=== PATIENT | female | born 1995 | race Caucasian/White ===

== ENCOUNTER 2024-04-08 21:12 | Emergency (ER) | payer OTHER ==
[~2024-04-08] VITALS: Ht 157.5 cm; Wt 60.0 kg
[2024-04-08 21:18] VITALS: O2SAT 100
[2024-04-09 00:04] LABS: BASOPHILS % 0.4 % (0.0-2.0); HEMATOCRIT. 38.8 % (36.0-48.0); HEMOGLOBIN. 12.9 g/dL (12.0-16.0); LYMPHOCYTES % 23.4 % (20.0-50.0); MEAN CORPUSCULAR HEMOGLOBIN 30.4 pg (28.0-32.0); MEAN CORPUSCULAR HGB CONC 33.2 g/dL (31.0-37.0); MEAN CORPUSCULAR VOLUME 91.6 fL (81.0-99.0); MONOCYTES % 7.2 % (2.0-8.0); PLATELET 327 x1000/uL (130-400); RED BLOOD CELL COUNT 4.23 mill/uL (4.2-5.4); RED CELL DISTRIBUTION WIDTH 12.6 % (11.6-14.6); WHITE BLOOD COUNT 8.6 x1000/uL (4.5-11.0)
[2024-04-09 00:09] LABS: CHLORIDE 109 mEq/L (98-107); SODIUM 142 mEq/L (136-145)
[2024-04-09 00:10] LABS: CARBON DIOXIDE 23 mEq/L (21-32)
[2024-04-09 00:11] LABS: CALCIUM 9.4 mg/dL (8.7-10.4)
[2024-04-09 00:16] LABS: CREATININE 0.9 mg/dL (0.6-1.0); GLUCOSE 116 mg/dL (70-105); UREA NITROGEN BLOOD 12 mg/dL (9-23)
[2024-04-09] MEDS ORDERED: HYDROCODONE/ACETAMINOPHEN 5/325MG TABLET PO ONE (00:45)
[2024-04-09] MEDS ORDERED: TOPUD PO (08:29)
[2024-04-09] MEDS: HYDROCODONE/ACETAMINOPHEN 5/325MG TABLET PO NR (08:41)
[2024-04-09 08:42] VITALS: BP 138/85; PULSE 82; RESP 16; TEMP 36.94740; O2SAT 100
== END 2024-04-09 08:42 | disposition home or self-care (01) ==
LOC: ER 21:12
DX: S02.2XXA Fracture of nasal bones, initial encounter for closed fracture (principal); Z88.8 Allergy status to other drugs, medicaments and biological substances; Y04.0XXA Assault by unarmed brawl or fight, initial encounter; Y93.89 Activity, other specified; Y92.89 Other specified places as the place of occurrence of the external cause; Y99.8 Other external cause status
CPT/HCPCS: 36415; 70486; 71046; 80048; 85025; 99284

== ENCOUNTER 2024-08-28 12:58 | Emergency (ER) | payer MEDICAID ==
[~2024-08-28] VITALS: Ht 165.1 cm; Wt 60.0 kg
[~2024-08-28 12:58] MED LIST: TOPUD PO
[2024-08-28 12:59] VITALS: O2SAT 99
[2024-08-28] MEDS: LIDOCAINE HCL/PF 1% 10 MG/ML 5ML VIAL INFIL ONE (17:53)
[2024-08-28] MEDS ORDERED: TETANUS, DIPHTHERIA, PERTUSSIS VAC/PF 0.5ML (>10YR OLD) IM ONE (18:00)
[2024-08-28 19:11] LABS: BASOPHILS % 0.7 % (0.0-2.0); EOSINOPHILS % 0.5 % (0.0-5.0); HEMATOCRIT. 40.8 % (36.0-48.0); HEMOGLOBIN. 13.6 g/dL (12.0-16.0); LYMPHOCYTES % 16.6 % (20.0-50.0); MEAN CORPUSCULAR HGB CONC 33.4 g/dL (31.0-37.0); MEAN CORPUSCULAR VOLUME 86.7 fL (81.0-99.0); MEAN PLATELET VOLUME 7.9 fl (7.4-10.4); MONOCYTES % 5.8 % (2.0-8.0); NEUTROPHILS % 76.4 % (40.0-76.0); PLATELET 401 x1000/uL (130-400); RED BLOOD CELL COUNT 4.71 mill/uL (4.2-5.4); RED CELL DISTRIBUTION WIDTH 13.2 % (11.6-14.6); WHITE BLOOD COUNT 8.8 x1000/uL (4.5-11.0)
[2024-08-28 19:15] LABS: CHLORIDE 109 mEq/L (98-107); POTASSIUM 4.5 mEq/L (3.5-5.1); SODIUM 138 mEq/L (136-145)
[2024-08-28 19:16] LABS: CALCIUM 9.3 mg/dL (8.7-10.4); CARBON DIOXIDE 24 mEq/L (21-32)
[2024-08-28 19:21] LABS: CREATININE 0.7 mg/dL (0.6-1.0); GLUCOSE 113 mg/dL (70-105); UREA NITROGEN BLOOD 14 mg/dL (9-23)
[2024-08-28 19:22] LABS: ETHANOL BLOOD < 10 mg/dL (<10)
[2024-08-28 19:23] LABS: ACETAMINOPHEN < 2 ug/mL (10-30)
[2024-08-28 19:26] LABS: HCG SCREEN NEGATIVE
[2024-08-28] MEDS: KETOROLAC 15MG/ML VIAL IM ONE (22:40)
[2024-08-28] MEDS: TETANUS, DIPHTHERIA, PERTUSSIS VAC/PF 0.5ML (>10YR OLD) IM ONE (22:41)
[2024-08-29 03:24] LABS: *AMPHETAMINES SCREEN URINE NEGATIVE (NEGATIVE); *BARBITURATES SCREEN URINE NEGATIVE (NEGATIVE); *BENZODIAZEPINES SCREEN URINE NEGATIVE (NEGATIVE); *COCAINE SCREEN URINE PRESUMPTIVE POSITIVE (NEGATIVE); CANNABINOID URINE SCREEN NEGATIVE (NEGATIVE); ECSTASY MDMA SCREEN URINE NEGATIVE (NEGATIVE); METHADONE URINE SCREEN NEGATIVE (NEGATIVE); OPIATES URINE SCREEN NEGATIVE (NEGATIVE); PHENCYCLIDINE URINE SCREEN NEGATIVE (NEGATIVE)
[2024-08-29 08:55] VITALS: BP 120/86; PULSE 74; RESP 16; TEMP 36.7; O2SAT 98
== END 2024-08-29 08:58 | disposition home or self-care (01) ==
LOC: ER 12:58
DX: S01.01XA Laceration without foreign body of scalp, initial encounter (principal); R51.9 Headache, unspecified; F19.10 Other psychoactive substance abuse, uncomplicated; F31.9 Bipolar disorder, unspecified; Z88.8 Allergy status to other drugs, medicaments and biological substances; Y04.0XXA Assault by unarmed brawl or fight, initial encounter; Y93.89 Activity, other specified; Y92.89 Other specified places as the place of occurrence of the external cause; Y99.8 Other external cause status
CPT/HCPCS: 80048; 80307; 80329; 80320; 84703; 85025; 36415; 73030; 73110; 73130; 70450; 90715; 90471; 96372; 99285; 80305; J1885; J2003; Z7610 ×5; A6449; A4565; A4606; G0480